=== PATIENT | male | born 1965 | race Caucasian/White ===

== ENCOUNTER 2025-01-01 20:30 | Observation (INO) ==
[2025-01-01 22:06] LABS: Hematocrit (blood only) 42.8 % (42.0-52.0); Hemoglobin 14.9 g/dl (14.0-18.0); Immature Granulocytes # (auto) 0.03 K/uL (0.01-0.20); Immature Granulocytes % (auto) 0.4 %; Mean Corpuscular Hemoglobin 31.6 pg (25.0-34.0); Mean Corpuscular Volume 90.9 fL (80.0-100.0); Platelet Count 208 K/uL (130-400); RDW Standard Deviation 39.9 fL (36.4-46.3); Red Blood Count 4.71 M/uL (4.70-6.10); White Blood Count 8.33 K/ul (4.8-10.8)
[2025-01-01 22:14] LABS: Alanine Aminotransferase 18.0 U/L (7-52); Albumin Globulin Ratio 1.6 (0.9-2); Albumin Level 4.0 gm/dl (3.4-5.0); Alkaline Phosphatase 66.0 U/L (34-104); Anion Gap 11.0 (3-11); Bilirubin,Total 0.3 mg/dl (0.2-1.0); Blood Urea Nitrogen 13.0 mg/dl (6-23); Calcium 9.0 mg/dl (8.6-10.3); Carbon Dioxide 24.0 mmol/L (21-32); Chloride 104.0 mmol/L (98-107); Creatinine Clr Calc Pharmacy 91.9 ml/min; Globulin 2.5 gm/dl (2.5-4.0); Glucose 105.0 mg/dl (70-99(Fasting)); Lipase 38.0 U/L (11-82); Potassium 3.4 mmol/L (3.5-5.1); Sodium 139.0 mmol/L (136-145); Total Protein 6.5 gm/dl (6.0-8.3)
[2025-01-01 22:23] LABS: INR 1.0 (0.9-1.1); Partial Thromboplastin Time 22 Seconds (21-31); Prothrombin Time 10.8 Seconds (9.0-12.0)
[2025-01-01] MEDS: DIPHTHER/TETAN/PERTUS Vaccine (Tdap, Adol/Adult) 0.5mL IM ONE (22:50)
--- NOTE | 2025-01-01 22:55 | CT Scan Report ---
Exam(s): CT C SPINE EXAM: CT Cervical Spine Without Intravenous Contrast CLINICAL HISTORY: Reason for exam: Trauma. TECHNIQUE: Axial computed tomography images of the cervical spine without intravenous contrast. Automated exposure control was utilized for the study. A dose lowering technique was utilized adhering to the principles of ALARA. COMPARISON: No relevant prior studies available. FINDINGS: Vertebrae: No acute fracture. There are mild hypertrophic degenerative changes. Discs/spinal canal/neural foramina: No acute findings. No spinal canal stenosis. Soft tissues: Unremarkable. IMPRESSION: Mild hypertrophic degenerative changes. If further evaluation is clinically necessary, consider correlation with MRI Electronically signed by: Ramos Hu MD 01/01/25 22:54 PM
[2025-01-01] MEDS: LIDOCAINE 1% LOCAL 20 ML VIAL INJ ONE (23:35)
--- NOTE | 2025-01-01 23:44 | Emergency Department Note ---
ED Visit Note I was asked by my attending, Dr. Childers to assist with the wound repair. The patient sustained a vertical 3.5 cm laceration to the forehead. The wound was anesthetized using 1% lidocaine, which they tolerated well. Using sterile procedure, the wound bed was prepped and cleansed with sterile saline and Betadine. No foreign body was retained in the wound. Wound edges were approximated using 8, 6-0 sutures which will need to be removed in 7-10 days. The patient tolerated the procedure well. Bacitracin was applied to the wound as well as bandage. Please refer to Dr. Spring's documentation for patient instruction, as well as further evaluation and treatment. .
--- NOTE | 2025-01-02 00:21 | XRay Report ---
Exam(s): XR CXR 1 VIEW EXAM: XR Chest, 1 View CLINICAL HISTORY: Reason for exam: Trauma. TECHNIQUE: Frontal view of the chest. COMPARISON: No relevant prior studies available. FINDINGS: Eventration of the left hemidiaphragm. Lungs: Mild to moderate peribronchial thickening of the central and lower lobe bronchi. No consolidation. Pleural space: Unremarkable. No pneumothorax. Heart: Unremarkable. No cardiomegaly. Mediastinum: Unremarkable. Normal mediastinal contour. Bones/joints: Status post right shoulder arthroplasty. No acute fracture. IMPRESSION: No evidence of acute thoracic injury. If there is continued clinical concern, a CT scan may be of benefit for further evaluation. Electronically signed by: Sachi Awan MD 01/02/25 00:20 AM
--- NOTE | 2025-01-02 00:28 | CT Scan Report ---
Exam(s): CT FACIAL Without Contrast EXAM: CT Head and Maxillofacial Without Intravenous Contrast CLINICAL HISTORY: Reason for exam: Trauma. TECHNIQUE: Axial computed tomography images of the head/brain and face without intravenous contrast. CTDI is 26.96 mGy and DLP is 1367.88 mGy-cm. Automated exposure control was utilized for the study. A dose lowering technique was utilized adhering to the principles of ALARA. COMPARISON: No relevant prior studies available. FINDINGS: Brain: Unremarkable. No hemorrhage. No significant white matter disease. No edema. Ventricles: Unremarkable. No ventriculomegaly. Bones/joints: Remote displaced bilateral fractures. Soft tissues: Mild soft tissue swelling around the nose. Prominent lingual tonsils. Sinuses: Unremarkable as visualized. No acute sinusitis. Mastoid air cells: Unremarkable as visualized. No mastoid effusion. Orbits: Unremarkable as visualized. IMPRESSION: Bilateral nasal bone fractures. Electronically signed by: Sachi Awan MD 01/02/25 00:26 AM
--- NOTE | 2025-01-02 01:05 | CT Scan Report ---
Exam(s): CT HEAD Without Contrast EXAM: CT Head Without Intravenous Contrast CLINICAL HISTORY: Reason for exam: Trauma. TECHNIQUE: Axial computed tomography images of the head/brain without intravenous contrast. CTDI is 26.96 mGy and DLP is 1367.88 mGy-cm. Automated exposure control was utilized for the study. A dose lowering technique was utilized adhering to the principles of ALARA. COMPARISON: No relevant prior studies available. FINDINGS: Brain: There is a remote injury of the right frontal lobe with encephalomalacia and gliosis. No hemorrhage. No significant white matter disease. No edema. Ventricles: Unremarkable. No ventriculomegaly. Bones/joints: Unremarkable. No acute fracture. Soft tissues: There is mild soft tissue swelling over the right forehead. Sinuses: Unremarkable as visualized. No acute sinusitis. Mastoid air cells: Unremarkable as visualized. No mastoid effusion. IMPRESSION: No evidence of acute intercranial pathology. Electronically signed by: Sachi Awan MD 01/02/25 01:04 AM
--- NOTE | 2025-01-02 01:18 | Emergency Department Note ---
Impression & Plan Syncope, Urticaria, Open fracture of nasal bones, Facial laceration, Elevated troponin Admit to the [facility] ED Provider Note NAME: EYAL COYLE Jr AGE: 59 SEX: Male INFORMANT: Patient ED PROVIDER(S): Andria Spring DO CHIEF COMPLAINT: Allergic reaction and syncope PLAN: Disposition: Admit to the [facility] MEDICAL DECISION MAKING: This is a 59-year-old male patient who has had 3 separate episodes of acute hives that lasted for approximately 1 hour over the past week. The third episode was this evening. The patient got into the shower to try to help with the itch and became extremely lightheaded and dizzy. As he was getting out of the shower, he had a syncopal event and fell to the ground striking his face suffering a large laceration to his forehead. CT scan of the brain and cervical spine were negative. Facial CT scan showed evidence of bilateral nasal bone fractures. The patient had what appeared to be a puncture wound over the nose which most likely represents the open nasal bone fracture. He was medicated with IV Ancef for this. He was also given a IM Adacel. Laboratory studies reveal elevated troponin levels but EKG remained unchanged. The patient had no chest discomfort. Patient denies any past medical history other than an intracranial hemorrhage earlier this year after suffering a fall out of bed after a night of drinking. [facility] care. The laceration on the face was repaired by GAVIN Jovel. Please see her procedure note dictation for details of the repair [facility] Nursing notes: reviewed and agree with them. Vital Signs: reviewed and remarkable for hypertension Additional History obtained from: Patient's family who is at the bedside Differential Diagnosis: Intracranial hemorrhage, skull fracture, facial bone fractures, C-spine injury Diagnostics, independently interpreted by me: ECG: normal sinus rhythm at a rate of [address] segment elevation or signs of ischemia. There is no ectopy seen Cardiac Monitoring: normal sinus rhythm at a rate of 75 Imaging studies: CT scan of the brain: As per Imbro CT scan of the facial bones: As per Imbro CT scan of the cervical spine: As per Imbro Chest x-ray: No acute abnormalities as per my independent interpretation HPI: 59 year old Male arrives for evaluation of facial trauma. The patient was having an acute allergic reaction at home with hives about his body when he got into the shower to see if that would help the itch. Patient became lightheaded and dizzy in the shower and as he was stepping out had a syncopal episode falling to the ground striking his face. He suffered a laceration to his forehead and trauma to his nose. EMS was called and they transported him here. Patient explains that this is the third allergic reaction he has had in 1 week where he developed hives about his body. PAST MEDICAL HISTORY: Previous intracranial hemorrhage from trauma in April of this year, SOCIAL HISTORY: Lives with his family but travels for work, does drink alcohol HOME MEDICATIONS: None ALLERGIES: None VITALS: See Below PHYSICAL EXAMINATION: Primary Survey Airway: Intact Breathing: Normal, breath sounds equal bilaterally Circulation: Skin warm, distal pulses 2+, capillary refill less than 2 seconds Disability Pupils: Equal and reactive to light, 2mm, brisk GCS: 15, E = 6 V=5 M= 4 Motor Function: Moves all extremities. Sensory: No deficits Secondary Survey GEN: Well developed and well-nourished HEAD: Normal cephalic with a 3.5 cm linear laceration to the right forehead. Obvious contusion, deformity and edema to the nose with a small puncture wound to the bridge of the nose. EYES: Pupils round reactive to light, conjunctiva clear, extraocular movements intact, no raccoons eyes ENT: No fluid in external acoustic canals, no hemotympanum, no sam's sign, nares patent, oropharynx clear NECK: No JVD, midline trachea, no cervical spine tenderness, C-spine was clinically cleared at 2110 HEART: Regular rate and rhythm LUNGS: Clear to auscultation bilaterally. CHEST: Chest wall non-tender, no bruising/deformity ABD: No Johnson-Mcgowan's or Galen's sign, soft, non-tender, no rebound or guarding, PELVIS: Stable to rock BACK: No step offs or deformities, T-L spine non tender EXT: 2+ global pulses, moving all extremities well, +5/5 muscle strength globally NEURO: CNII-XII grossly intact, no sensory deficits Skin: Urticaria noted over the right flank and chest wall Emergency Department treatment: library monitor, IM Adacel, IV Ancef Emergency Department course: Patient was evaluated in room B-7. A complete history and physical was performed. Full trauma evaluation was completed. Portable chest x-ray was performed. Order was placed for continuous cardiac monitoring. Patient was in a normal sinus rhythm at a rate of 75. Twelve-lead EKG was obtained. Laboratory studies were drawn as above. IM Adacel was given. Patient went for CT scan of the brain, cervical spine and facial bones. IV Ancef was given. The wound on the face was repaired by GAVIN Jovel. Repeat troponin was obtained. The case was discussed with the [facility] Hospitalist and the patient will be evaluated for further inpatient care. Past Med/Surg History Problem List (Updated 01/02/25 @ 12:12 by Luigi Cadet MD) Fracture Elevated troponin (Acute) Facial laceration (Acute) Open fracture of nasal bones (Acute) Urticaria (Acute) Syncope (Acute) Medical History (Updated 01/02/25 @ 12:12 by Luigi Cadet MD) No known health problems Surgical History History of wisdom tooth extraction Family History Father Stomach cancer Social History Smoking Status: Never smoker Tobacco Type: Smokeless Tobacco (Dip or Chew) Second Hand Exposure: Yes; Do You Dip or Chew Tobacco: No (hisotry of); Hx Alcohol Use: Yes Alcohol type: beer Hx Substance Use: No Preferred Language: Turkish Communication Ability: Effective Radiation Officer Required: No Beliefs That Will Affect Care: None Current Living Situation: Spouse and Family Current Living Situation Comment: and kids Other Information That Helps Us Care for You: No Feels Safe at Home: Yes Safety Concerns: Feels Safe At This Time Assistive Devices: None Allergies Allergies Allergy/AdvReac Type Severity Reaction Status Date / Time No Known Allergies Allergy Verified 01/01/25 23:47 Home Meds Home Medications Medication Instructions Recorded Confirmed No Known Home Medications 01/01/25 01/01/25 Results & Data (ED) Vital Signs Vital Signs - 24 hr 01/01/25 20:38 01/01/25 20:53 01/01/25 20:53 Temperature 36.9 C Temperature Source Oral Pulse Rate 91 H 92 H Pulse Rate [Apical] Respiratory Rate 18 Respiratory Effort / Characteristics Non-Labored Spontaneous Respiratory Depth Respiratory Pattern Blood Pressure 143/88 H Blood Pressure [Right Arm] Blood Pressure Mean 106 Blood Pressure Mean [Right Arm] Blood Pressure Position [Right Arm] Pulse Oximetry 94 94 Oxygen Delivery Method Room Air Room Air Sepsis Recent Fever Within 48 Hours No Sepsis New/Unexplained Change in Mental Status No Sepsis Action Taken by Nursing No Action Required 01/01/25 20:53 01/01/25 22:15 01/01/25 22:22 Temperature Temperature Source Pulse Rate 77 Pulse Rate [Apical] 92 H 77 Respiratory Rate 18 16 16 Respiratory Effort / Characteristics Non-Labored Spontaneous Respiratory Depth Respiratory Pattern Blood Pressure Blood Pressure [Right Arm] 143/88 H 143/88 H Blood Pressure Mean Blood Pressure Mean [Right Arm] 106 106 Blood Pressure Position [Right Arm] Pulse Oximetry 94 97 94 Oxygen Delivery Method Room Air Room Air Room Air Sepsis Recent Fever Within 48 Hours Sepsis New/Unexplained Change in Mental Status Sepsis Action Taken by Nursing 01/02/25 00:00 01/02/25 00:33 Temperature Temperature Source Pulse Rate 75 Pulse Rate [Apical] 68 Respiratory Rate 15 Respiratory Effort / Characteristics Non-Labored Spontaneous Respiratory Depth Normal Respiratory Pattern Regular Blood Pressure Blood Pressure [Right Arm] 122/84 Blood Pressure Mean Blood Pressure Mean [Right Arm] 96 Blood Pressure Position [Right Arm] Semi-fowlers Pulse Oximetry 97 Oxygen Delivery Method Room Air Sepsis Recent Fever Within 48 Hours Sepsis New/Unexplained Change in Mental Status Sepsis Action Taken by Nursing Laboratory Data 01/02/25 03:58 01/02/25 03:58 Lab Results 01/01/25 01/01/25 01/01/25 Range/Units 20:45 22:46 23:28 WBC 8.33 (4.8-10.8) K/ul RBC 4.71 (4.70-6.10) M/uL Hgb 14.9 (14.0-18.0) g/dl Hct 42.8 (42.0-52.0) % MCV 90.9 (80.0-100.0) fL MCH 31.6 (25.0-34.0) pg MCHC 34.8 (32.0-36.0) g/dL RDW Std Deviation 39.9 (36.4-46.3) fL RDW Coeff of Yashira 12.1 (11.5-14.5) % Plt Count 208 (130-400) K/uL MPV 10.2 (9.4-12.4) fL Immature Gran % (Auto) 0.4 % Neut % (Auto) 70.2 % Lymph % (Auto) 21.1 % Blair % (Auto) 6.2 % Eos % (Auto) 1.6 % Baso % (Auto) 0.5 % Neut # (Auto) 5.85 (1.40-6.50) K/uL Lymph # (Auto) 1.76 (1.20-3.40) K/uL Blair # (Auto) 0.52 (0.11-0.59) K/uL Eos # (Auto) 0.13 (0.00-0.50) K/uL Baso # (Auto) 0.04 (0.00-0.20) K/uL Immature Gran # (Auto) 0.03 (0.01-0.20) K/uL PT 10.8 (9.0-12.0) Seconds INR 1.0 (0.9-1.1) APTT 22 (21-31) Seconds PTT Ratio 0.8 Sodium 139 (136-145) mmol/L Potassium 3.4 L (3.5-5.1) mmol/L Chloride 104 (98-107) mmol/L Carbon Dioxide 24 (21-32) mmol/L Anion Gap 11 (3-11) BUN 13 (6-23) mg/dl Creatinine 0.95 (0.6-1.4) mg/dl Est Cr Clr Drug Dosing 91.9 ml/min eGFR 92.20 BUN/Creatinine Ratio 13.7 (10-20) Glucose 105 H (70-99(Fasting)) mg/dl Calcium 9.0 (8.6-10.3) mg/dl Magnesium 2.0 (1.7-2.4) mg/dl Total Bilirubin 0.3 (0.2-1.0) mg/dl AST 29 (13-39) U/L ALT 18 (7-52) U/L Alkaline Phosphatase 66 (34-104) U/L Troponin I High Sens 30.5 H 132.9 H* D (0-20) pg/ml Total Protein 6.5 (6.0-8.3) gm/dl Albumin 4.0 (3.4-5.0) gm/dl Globulin 2.5 (2.5-4.0) gm/dl Albumin/Globulin Ratio 1.6 (0.9-2) Lipase 38 (11-82) U/L TSH 2.980 (0.300-4.500) uIu/ml Ethyl Alcohol mg/dL < 10.0 (<10.0) mg/dl Lyme Disease Screen (Negative) 01/02/25 Range/Units 01:06 WBC (4.8-10.8) K/ul RBC (4.70-6.10) M/uL Hgb (14.0-18.0) g/dl Hct (42.0-52.0) % MCV (80.0-100.0) fL MCH (25.0-34.0) pg MCHC (32.0-36.0) g/dL RDW Std Deviation (36.4-46.3) fL RDW Coeff of Yashira (11.5-14.5) % Plt Count (130-400) K/uL MPV (9.4-12.4) fL Immature Gran % (Auto) % Neut % (Auto) % Lymph % (Auto) % Blair % (Auto) % Eos % (Auto) % Baso % (Auto) % Neut # (Auto) (1.40-6.50) K/uL Lymph # (Auto) (1.20-3.40) K/uL Blair # (Auto) (0.11-0.59) K/uL Eos # (Auto) (0.00-0.50) K/uL Baso # (Auto) (0.00-0.20) K/uL Immature Gran # (Auto) (0.01-0.20) K/uL PT (9.0-12.0) Seconds INR (0.9-1.1) APTT (21-31) Seconds PTT Ratio Sodium (136-145) mmol/L Potassium (3.5-5.1) mmol/L Chloride (98-107) mmol/L Carbon Dioxide (21-32) mmol/L Anion Gap (3-11) BUN (6-23) mg/dl Creatinine (0.6-1.4) mg/dl Est Cr Clr Drug Dosing ml/min eGFR BUN/Creatinine Ratio (10-20) Glucose (70-99(Fasting)) mg/dl Calcium (8.6-10.3) mg/dl Magnesium (1.7-2.4) mg/dl Total Bilirubin (0.2-1.0) mg/dl AST (13-39) U/L ALT (7-52) U/L Alkaline Phosphatase (34-104) U/L Troponin I High Sens (0-20) pg/ml Total Protein (6.0-8.3) gm/dl Albumin (3.4-5.0) gm/dl Globulin (2.5-4.0) gm/dl Albumin/Globulin Ratio (0.9-2) Lipase (11-82) U/L TSH (0.300-4.500) uIu/ml Ethyl Alcohol mg/dL (<10.0) mg/dl Lyme Disease Screen Negative (Negative) Administered Medications Cyproheptadine HCl (Cyproheptadine Hcl 4 Mg Tab) 4 mg PO Q8H [facility] Stop: 02/01/25 08:14 Last Admin: 01/02/25 16:04 Dose: 4 mg Documented By: Admin: 01/02/25 09:03 Dose: 4 mg Documented By: NICOLE Methylprednisolone 40 mg/ (Syringe) 0.64 mls @ 1.5 mls/min IV Q8H [facility] Stop: 02/01/25 08:29 Last Admin: 01/02/25 16:04 Dose: 1.5 mls/min Documented By: Admin: 01/02/25 09:03 Dose: 1.5 mls/min Documented By: NICOLE Discontinued Medications Diphtheria/Pertussis/Tetanus Vacc (Diphther/Tetan/Pertus Vaccine (Tdap, Adol/Adult) 0.5ml) 0.5 ml IM .ONCE ONE Stop: 01/01/25 21:51 Last Admin: 01/01/25 22:50 Dose: 0.5 ml Documented By: JOURDAN Cefazolin Sodium (Ancef 1000mg) 1,000 mg in 7.5 mls @ 2.5 mls/min IV NOW STA Stop: 01/02/25 00:34 Last Admin: 01/02/25 00:58 Dose: 2.5 mls/min Documented By: mls Lactated Ringer's (Lr) 1,000 mls @ 80 mls/hr IV .[id number] ALEXI Stop: 01/02/25 13:44 Last Infusion: 01/02/25 14:42 Dose: Infused Documented By: Admin: 01/02/25 01:51 Dose: 80 mls/hr Documented By: SANDRA Lidocaine HCl (Lidocaine 1% Local 20 Ml Vial) 10 ml INJ NOW ONE Stop: 01/01/25 21:53 Last Admin: 01/01/25 23:35 Dose: 10 ml Documented By: [id number] Imaging Data Radiologist's Impression: Chest X-Ray 01/01/25 21:50 Exam(s): XR CXR 1 VIEW EXAM: XR Chest, 1 View CLINICAL HISTORY: Reason for exam: Trauma. TECHNIQUE: Frontal view of the chest. COMPARISON: No relevant prior studies available. FINDINGS: Eventration of the left hemidiaphragm. Lungs: Mild to moderate peribronchial thickening of the central and lower lobe bronchi. No consolidation. Pleural space: Unremarkable. No pneumothorax. Heart: Unremarkable. No cardiomegaly. Mediastinum: Unremarkable. Normal mediastinal contour. Bones/joints: Status post right shoulder arthroplasty. No acute fracture. IMPRESSION: No evidence of acute thoracic injury. If there is continued clinical concern, a CT scan may be of benefit for further evaluation. Electronically signed by: Sachi Awan MD 01/02/25 00:[address] 01/01/25 21:51 Exam(s): CT C SPINE EXAM: CT Cervical Spine Without Intravenous Contrast CLINICAL HISTORY: Reason for exam: Trauma. TECHNIQUE: Axial computed tomography images of the cervical spine without intravenous contrast. Automated exposure control was utilized for the study. A dose lowering technique was utilized adhering to the principles of ALARA. COMPARISON: No relevant prior studies available. FINDINGS: Vertebrae: No acute fracture. There are mild hypertrophic degenerative changes. Discs/spinal canal/neural foramina: No acute findings. No spinal canal stenosis. Soft tissues: Unremarkable. IMPRESSION: Mild hypertrophic degenerative changes. If further evaluation is clinically necessary, consider correlation with MRI Electronically signed by: Ramos Hu MD 01/01/25 22:[address] 01/01/25 21:51 Exam(s): CT FACIAL Without Contrast EXAM: CT Head and Maxillofacial Without Intravenous Contrast CLINICAL HISTORY: Reason for exam: Trauma. TECHNIQUE: Axial computed tomography images of the head/brain and face without intravenous contrast. CTDI is 26.96 mGy and DLP is 1367.88 mGy-cm. Automated exposure control was utilized for the study. A dose lowering technique was utilized adhering to the principles of ALARA. COMPARISON: No relevant prior studies available. FINDINGS: Brain: Unremarkable. No hemorrhage. No significant white matter disease. No edema. Ventricles: Unremarkable. No ventriculomegaly. Bones/joints: Remote displaced bilateral fractures. Soft tissues: Mild soft tissue swelling around the nose. Prominent lingual tonsils. Sinuses: Unremarkable as visualized. No acute sinusitis. Mastoid air cells: Unremarkable as visualized. No mastoid effusion. Orbits: Unremarkable as visualized. IMPRESSION: Bilateral nasal bone fractures. Electronically signed by: Sachi Awan MD 01/02/25 00:[address] 01/01/25 21:51 Exam(s): CT HEAD Without Contrast EXAM: CT Head Without Intravenous Contrast CLINICAL HISTORY: Reason for exam: Trauma. TECHNIQUE: Axial computed tomography images of the head/brain without intravenous contrast. CTDI is 26.96 mGy and DLP is 1367.88 mGy-cm. Automated exposure control was utilized for the study. A dose lowering technique was utilized adhering to the principles of ALARA. COMPARISON: No relevant prior studies available. FINDINGS: Brain: There is a remote injury of the right frontal lobe with encephalomalacia and gliosis. No hemorrhage. No significant white matter disease. No edema. Ventricles: Unremarkable. No ventriculomegaly. Bones/joints: Unremarkable. No acute fracture. Soft tissues: There is mild soft tissue swelling over the right forehead. Sinuses: Unremarkable as visualized. No acute sinusitis. Mastoid air cells: Unremarkable as visualized. No mastoid effusion. IMPRESSION: No evidence of acute intercranial pathology. Electronically signed by: Sachi Awan MD 01/02/25 01:04 AM Discharge Plan Visit Data Chief Complaint: Allergic Reaction Stated Complaint: HIVES, SYNCOPE, +LOC ED Provider: Andria Spring Discharge Problem: Syncope, Urticaria, Open fracture of nasal bones, Facial laceration, Elevated troponin Patient Disposition: Admitted As Inpatient Condition: Serious Discharge Instructions Interventions: ED Discharge Assessment Last Done: 01/02/25 02:16
--- NOTE | 2025-01-02 01:26 | History & Physical Report ---
"Date of Service January 02, 2025 Assessment & Plan (1) Elevated troponin: (2) Open fracture of nasal bones: (3) Urticaria: (4) Syncope: Plan 59 y/o male with no significant PMH here due a syncope after developing hives. Patient states that had been having hives types episodes in the afternoon for the past couple of days. Unsure what is causing them, no new home products, no new OTC, no new detergent, soup or fragrances. He states that usually taking a shower and taking a aspirin had been helping with symptoms. Today he took the shower and felt very bad, when he just had an episode of LOC and felt hitting his face in the shower. Patient had a 3.5cm laceration on his forehead that was sutured. CT head didn't showed any acute pathology. Facial CT: bilateral nasal fractures. Cervical CT: mild degenerative changes. Initial troponin mildly elevated 30, repeat 132.9. Patient without any chest pain, SOB, palpitations. Patient without any chest pain, SOB, palpitations. Denied any abdominal pain, nausea, vomiting or diarrhea. No wheezing.Patient will be admitted for observation and syncope workup and ACS rule out #Syncope - Patient with acute syncope after developing hives. No prodromal symptoms. No know heart disease - suspected secondary to allergic reaction, systemic vasodilation? Mastocytosis? - Will admit patient to med /telemetry - Troponin elevated on admission 30 -> 132. No CP. Repeat EKG normal sinus,no St depression or elevations - Chemistry remarkable. Potassium: 3.5.. Hgb 14 - UA negative - Lyme disease pending - Echocardiogram added to complete syncope workup - Serial troponin q6hrs - Orthostatic BP - LR 125 ml/hr 1L - CMP, mag in AM #Hives/ Urticaria | Severe allergic reaction - Unknown trigger. a week of generalized hives in the afternoon, mostly when he's outside - Related syncope but no respiratory symptoms, wheezing, SOB - Benadryl in EM improved symptoms - Will order the RAST testing to try to identify trigger - Benadryl prn #Bilateral nasal bone fractures/ Facial laceration - No respiratory distress, no airway compromised on admission - Pain control - Received Ancef x1 and Tdap booster in ED - consider outpatient ENT evaluation DVT prophylaxis: low risk, ambulation Dispo: Med telemetry History of Present Illness Primary Care Provider: Toro Lofton MD 59 y/o male with no significant PMH here due a syncope after developing hives. Patient states that had been having hives types episodes in the afternoon for the past couple of days. Unsure what is causing them, no new home products, no new OTC, no new detergent, soup or fragrances. He states that usually taking a shower and taking a aspirin had been helping with symptoms. Today he took the shower and felt very bad, when he just had an episode of LOC and felt hitting his face in the shower. Patient had a 3.5cm laceration on his forehead that was sutured. CT head didn't showed any acute pathology. Facial CT: bilateral nasal fractures. Cervical CT: mild degenerative changes. Initial troponin mildly elevated 30, repeat 132.9. Patient without any chest pain, SOB, palpitations. Denied any abdominal pain, nausea, vomiting or diarrhea. No wheezing. Allergies Allergy/AdvReac Type Severity Reaction Status Date / Time No Known Allergies Allergy Verified 01/01/25 23:47 Home Medications Medication Instructions Recorded Confirmed Type No Known Home Medications 01/01/25 01/01/25 History Past Med/Surg History Problem List (Updated 01/02/25 @ 12:12 by Luigi Cadet MD) Fracture Elevated troponin (Acute) Facial laceration (Acute) Open fracture of nasal bones (Acute) Urticaria (Acute) Syncope (Acute) Medical History (Updated 01/02/25 @ 12:12 by Luigi Cadet MD) No known health problems Surgical History History of wisdom tooth extraction Family History Father Stomach cancer Social History Smoking Status: Never smoker Tobacco Type: Smokeless Tobacco (Dip or Chew) Second Hand Exposure: Yes; Do You Dip or Chew Tobacco: No (hisotry of); Hx Alcohol Use: Yes Alcohol type: beer Hx Substance Use: No Preferred Language: Mont[place]atian Communication Ability: Effective Deputy County Clerk Required: No Beliefs That Will Affect Care: None Current Living Situation: Spouse and Family Current Living Situation Comment: and kids Other Information That Helps Us Care for You: No Feels Safe at Home: Yes Safety Concerns: Feels Safe At This Time Assistive Devices: None Physical Exam Constitutional: well developed, well nourished and cooperative; no acute distress ENMT: external ear and nose normal, oropharynx normal Neck: trachea midline, no thyromegaly Respiratory: normal respiratory effort, lungs clear to auscultation Cardiovascular: RRR, no murmur, no edema Gastrointestinal (Abdomen): normal bowel sounds, soft, nontender, no hepatosplenomegaly Skin: Trauma: + laceration (Forehead) and + contusion Neurologic: PERRL, EOMI, accommodation nl, no face palsy, no dysarthria Psychiatric: A+Ox3, euthymic affect Results & Data Results & Data Vital Signs (Past 12 Hours) Vital Signs Temp Pulse Pulse Resp BP BP Pulse Ox 01/02/25 00:33 75 01/02/25 00:00 68 15 122/84 97 01/01/25 22:22 77 16 143/88 H 94 01/01/25 22:15 77 16 97 01/01/25 20:53 92 H 18 143/88 H 94 01/01/25 20:53 94 01/01/25 20:53 36.9 C 92 H 18 143/88 H 94 01/01/25 20:38 91 H O2 Del Method 01/02/25 00:33 01/02/25 00:00 Room Air 01/01/25 22:22 Room Air 01/01/25 22:15 Room Air 01/01/25 20:53 Room Air 01/01/25 20:53 Room Air 01/01/25 20:53 Room Air 01/01/25 20:38 Code Status & VTE Plan VTE Prophylaxis Plan VTE Prophylaxis will be ordered: Yes Supervising Physician Co-Signing Physician Notes Attending addendum: I have physically seen this patient, have supervised the medical residents activities, and agree with the H&P unless as otherwise noted. Assessment and Plan: Patient is a 59-year-old male with past medical history including syncope after developing hives from unknown reaction. Reports at least 3 episodes of the previous couple days again, from unknown source He reports that this seemed to occur and she is going outside. Showering and then taking aspirin seem to help symptoms Earlier today he had another episode of loss of consciousness, this time he fell forward, hitting his face on the shower, and required suturing in the emergency department for 3.5 cm laceration on his forehead. CT head did not show any internal bleeding. Facial CT showed bilateral nasal fractures. Cervical CT showed mild degenerative changes. Initial troponin 30, follow-up 3.32.9 Patient will be admitted to monitored Syncopal episode- Patient had placed 3 episodes over the past few days of syncope after developing hives Unknown etiology at this time The patient will be admitted to telemetry for serial cardiac enzymes, serial EKG's, cardiac rhythm monitoring and a 2-D echocardiogram with Dopplers. Follow-up troponins ordered and pending Orthostatic vital signs Place on LR 125 mL/h x 1 L Hives/urticaria/severe allergic reaction- Multiple episodes of the last few days Order RAST test for zone 3 allergens, and food allergen panel Bilateral nasal bone fractures/ facial laceration- Received Ancef in the ED and Tdap booster Follow-up with ENT in the outpatient setting Resident Activity Tracking Resident Involvement: Resident Care Provided Care Provided: Adult [facility]"
[2025-01-02 01:31] LABS: Magnesium 2.0 mg/dl (1.7-2.4)
[2025-01-02 01:36] LABS: Appearance Urine Clear (Clear); Glucose Urine UA Negative (Negative)
[2025-01-02] MEDS: LACTATED RINGER'S 1,000 ML IV SCH (01:51)
[2025-01-02] MEDS ORDERED: ONDANSETRON INJ 2 MG/ML 2 ML VIAL IV PRN (02:44)
[2025-01-02] MEDS ORDERED: ACETAMINOPHEN 325 MG TAB PO PRN (02:44)
[2025-01-02 03:35] LABS: Thyroid Stimulating Hormone 2.98 uIu/ml (0.300-4.500)
[2025-01-02 04:20] LABS: Hematocrit (blood only) 41.2 % (42.0-52.0); Hemoglobin 14.3 g/dl (14.0-18.0); Immature Granulocytes # (auto) 0.02 K/uL (0.01-0.20); Immature Granulocytes % (auto) 0.3 %; Mean Corpuscular Hemoglobin 31.6 pg (25.0-34.0); Mean Corpuscular Volume 90.9 fL (80.0-100.0); Platelet Count 193 K/uL (130-400); RDW Standard Deviation 40.6 fL (36.4-46.3); Red Blood Count 4.53 M/uL (4.70-6.10); White Blood Count 8.00 K/ul (4.8-10.8)
[2025-01-02 04:35] LABS: Anion Gap 4.0 (3-11); Blood Urea Nitrogen 12.0 mg/dl (6-23); Calcium 8.8 mg/dl (8.6-10.3); Carbon Dioxide 29.0 mmol/L (21-32); Chloride 104.0 mmol/L (98-107); Creatinine Clr Calc Pharmacy 86.4 ml/min; Glucose 114.0 mg/dl (70-99(Fasting)); Potassium 3.8 mmol/L (3.5-5.1); Sodium 137.0 mmol/L (136-145)
[2025-01-02] MEDS ORDERED: methylPREDNISolone 10 mg/mL (For Ped Dose < 7mg) IV SCH (08:15)
[2025-01-02 08:24] LABS: Amphetamines+Metham, Urine Neg (Neg); MDMA (Ecstacy), Urine Neg (Neg); Marijuana, Urine Neg (Neg)
[2025-01-02] MEDS: CYPROHEPTADINE HCL 4 MG TAB PO SCH (09:03)
--- NOTE | 2025-01-02 12:14 | Hospitalist Progress Note ---
Date of Service January 02, 2025 Assessment & Plan (1) Syncope: Plan: Probably related to transient hypotension from the underlying cause of the urticaria which has not been determined. No acute EKG changes. No evidence of acute coronary syndrome. Currently hemodynamically stable (2) Urticaria: Plan: No recurrence of urticaria since admission. He is now on cyproheptadine and parenteral steroid therapy which will continue for short time at discharge (3) Facial laceration: Plan: Forehead laceration suffered when he had a syncopal episode and fell has been sutured in the ED with hemostasis achieved. No signs of infection. Sutures will be removed in 1 week. (4) Elevated troponin: Plan: Mild. No chest pain. No acute EKG changes. Telemetry. Serial troponin levels (5) Fracture: Plan: Nondisplaced nasal fracture suffered when he had a syncopal episode and fell. No intervention necessary at this time Plan Hopeful discharge to home tomorrow, January 03, on cyproheptadine and a tapering dose of prednisone. Admission and Anticipated Discharge Date Admission Date: January 02, 2025 Subjective Alert and oriented. No complaints. Scheduled dosing of cyproheptadine has been started along with parenteral steroid therapy. Cardiac echo report is pending. Admission head CT scan was negative. No recurrent hives since admission. Hopefully he can go home tomorrow, January 03 Review of Systems 2 Review of Systems: Constitutionalno fever or chills ENTno blurred vision, no double vision, no epistaxis, no sore throat Respiratoryno cough, no wheezing, no shortness of breath Cardiacno palpitations, no chest pain, no syncope Yuri nausea, vomiting, diarrhea, melena, hematochezia GUno urinary retention, no urinary incontinence, no dysuria, no hematuria Musculoskeletalno joint pain, no muscle tenderness Skinno bruising, no rashes, no pruritus. Forehead laceration which he suffered when he fell with his syncopal episode has been sutured in the ED on admission and is bandaged Neurono isolated weakness, no paresthesia, no weakness Psychno depression, no anxiety Physical Exam 2 Physical Exam: General-alert and oriented x3, no fever, no chills HEENT-head normocephalic, pupils equal and reactive to light, extraocular muscles intact. Forehead laceration has been sutured in the ED on admission and hemostasis achieved. No signs of infection. Neck-no lymphadenopathy or thyromegaly, trachea midline Chest-clear to auscultation. No rales, wheezing or rhonchi Cardiac-regular rate and rhythm, normal S1 and S2 Abdomen-normal bowel sounds, no hepatosplenomegaly Extremities-no cyanosis, clubbing, or edema Neuro-cranial nerves II through XII intact, motor and sensory function within normal limits, strength symmetrical, no focal deficits Psych-normal affect, normal mood Results & Data Results & Data Vital Signs (Past 12 Hours) Vital Signs Temp Pulse Pulse Pulse Resp BP Pulse Ox 01/02/25 11:20 36.8 C 64 18 150/95 H 93 01/02/25 07:30 01/02/25 07:23 36.5 C 65 18 132/84 94 01/02/25 07:00 84 01/02/25 02:47 37.6 C H 67 18 147/97 H 99 01/02/25 02:30 79 01/02/25 02:00 71 14 130/94 96 01/02/25 00:33 75 O2 Del Method 01/02/25 11:20 Room Air 01/02/25 07:30 Room Air 01/02/25 07:23 Room Air 01/02/25 07:00 01/02/25 02:47 Room Air 01/02/25 02:30 01/02/25 02:00 Room Air 01/02/25 00:33 Laboratory Results 01/02/25 03:58 01/02/25 03:58 PG Care Time/CCT Total # of Minutes Spent Total Time Spent with Patient: Total time spent is greater than 50% in coordination of care (as documented) at patient's floor/unit and/or counseling patient: Coding Level of Care Code 84055 SUB INP/OBS CARE 3/50MIN Diagnoses Syncope R55 Urticaria L50.9 Facial laceration S01.81XA Elevated troponin R79.89 Fracture T14.8XXA
--- NOTE | 2025-01-02 13:49 | XCELERA ---
[id number]
--- NOTE | 2025-01-02 15:38 | Electrocardiogram Report ---
Test Reason : Blood Pressure : */* mmHG Vent. Rate : 89 BPM Atrial Rate : 89 BPM P-R Int : 196 ms QRS Dur : 96 ms QT Int : 354 ms P-R-T Axes : 44 1 48 degrees QTcB Int : 430 ms Normal sinus rhythm Normal ECG When compared with ECG of 30-May-2024 10:52, T wave amplitude has decreased in Anterior leads Confirmed by Elio Gray ([id number]) on 01/02/2025 3:38:12 PM Referred By: REFERRED SELF Confirmed By: Elio Gray
--- NOTE | 2025-01-02 15:43 | Electrocardiogram Report ---
Test Reason : Blood Pressure : */* mmHG Vent. Rate : 66 BPM Atrial Rate : 66 BPM P-R Int : 206 ms QRS Dur : 98 ms QT Int : 388 ms P-R-T Axes : 26 4 44 degrees QTcB Int : 406 ms Normal sinus rhythm Normal ECG When compared with ECG of 01-Jan-2025 20:39, (unconfirmed) No significant change was found Confirmed by Elio Gray ([id number]) on 01/02/2025 3:43:18 PM Referred By: REFERRED SELF Confirmed By: Elio Gray
[2025-01-02 23:06] VITALS: O2SAT 93
--- NOTE | 2025-01-03 06:28 | Billing Data ---
Date of Service January 03, 2025 Coding Level of Care Code 65000 INT INP/OBS CARE
[2025-01-03 06:42] LABS: Hematocrit (blood only) 44.9 % (42.0-52.0); Hemoglobin 14.8 g/dl (14.0-18.0); Mean Corpuscular Hemoglobin 30.5 pg (25.0-34.0); Mean Corpuscular Volume 92.4 fL (80.0-100.0); Platelet Count 205 K/uL (130-400); RDW Standard Deviation 41.5 fL (36.4-46.3); Red Blood Count 4.86 M/uL (4.70-6.10); White Blood Count 12.18 K/ul (4.8-10.8)
[2025-01-03 07:12] LABS: Immature Granulocytes # (auto) 0.06 K/uL (0.01-0.20); Immature Granulocytes % (auto) 0.5 %
[2025-01-03 07:15] LABS: Anion Gap 7.0 (3-11); Blood Urea Nitrogen 16.0 mg/dl (6-23); Calcium 9.3 mg/dl (8.6-10.3); Carbon Dioxide 25.0 mmol/L (21-32); Chloride 106.0 mmol/L (98-107); Creatinine Clr Calc Pharmacy 101.5 ml/min; Glucose 184.0 mg/dl (70-99(Fasting)); Potassium 4.4 mmol/L (3.5-5.1); Sodium 138.0 mmol/L (136-145)
--- NOTE | 2025-01-03 09:53 | Discharge Summary ---
Discharge Summary Date of Service January 03, 2025 Principal Dx & Hospital Course #1 = Principal Diagnosis (1) Syncope: Probably related to transient hypotension from the urticaria. The underlying cause of the urticaria has not been determined. No acute EKG changes. No evidence of acute coronary syndrome. Currently hemodynamically stable (2) Urticaria: No recurrence of urticaria since admission. He is now on cyproheptadine and was also treated with parenteral steroid therapy while hospitalized. He will be discharged on cyproheptadine and a oral prednisone tapering dose. (3) Facial laceration: Forehead laceration suffered when he had a syncopal episode and fell has been sutured in the ED with hemostasis achieved. No signs of infection. Sutures will be removed in 1 week by PCP. (4) Elevated troponin: Mild. No chest pain. No acute EKG changes. Telemetry. Serial troponin levels (5) Fracture: Nondisplaced nasal fracture suffered when he had a syncopal episode and fell. No intervention necessary at this time Plan Home today, January 03, on cyproheptadine and a tapering dose of prednisone. Admission HPI Per Admitting Provider 59 y/o male with no significant PMH here due a syncope after developing hives. Patient states that had been having hives types episodes in the afternoon for the past couple of days. Unsure what is causing them, no new home products, no new OTC, no new detergent, soup or fragrances. He states that usually taking a shower and taking a aspirin had been helping with symptoms. Today he took the shower and felt very bad, when he just had an episode of LOC and felt hitting his face in the shower. Patient had a 3.5cm laceration on his forehead that was sutured. CT head didn't showed any acute pathology. Facial CT: bilateral nasal fractures. Cervical CT: mild degenerative changes. Initial troponin mildly elevated 30, repeat 132.9. Patient without any chest pain, SOB, palpitations. Denied any abdominal pain, nausea, vomiting or diarrhea. No wheezing. Discharge Exam General-alert and oriented x3, no fever, no chills HEENT-head normocephalic, pupils equal and reactive to light, extraocular muscles intact. Forehead laceration has been sutured in the ED on admission and hemostasis achieved. No signs of infection. Neck-no lymphadenopathy or thyromegaly, trachea midline Chest-clear to auscultation. No rales, wheezing or rhonchi Cardiac-regular rate and rhythm, normal S1 and S2 Abdomen-normal bowel sounds, no hepatosplenomegaly Extremities-no cyanosis, clubbing, or edema Neuro-cranial nerves II through XII intact, motor and sensory function within normal limits, strength symmetrical, no focal deficits Psych-normal affect, normal mood Discharge Plan Discharge Items Patient Disposition: Home - Self-Care Reason For Visit: ALLERGIC REACTION, ELEVATED TROPONINS Discharge Diagnosis: Syncope with fall, forehead laceration, nasal bone fracture, urticaria, elevated troponin without acute coronary syndrome Condition on Discharge: Good Activity: Resume your previous activity Non-emergency contact: Primary Care Provider Call non-emergency contact if: your symptoms worsen Follow-up/Referrals: Toro Lofton MD [Primary Care Provider] - Diet: Regular Addtl Attending Provider Instructions: Take Periactin (cyproheptadine ) 4 mg twice daily for 1 week. Take prednisone in a tapering dose fashion as directed. Follow-up with primary care provider within 1 week or soon as possible for suture removal from the forehead laceration Pending Studies at Discharge: No Stand-Alone Forms: [place], Smoking Cessation Medications and DC Order Prescriptions: New cyproheptadine 4 mg tablet 4 mg PO BID Qty: 14 0RF prednisone 10 mg tablet See Rx Instructions .ROUTE .COMPLEX Qty: 12 0RF Rx Instructions: 10 mg orally 3 times a day for 2 days, then 10 mg twice a day for 2 days, then 10 mg once a day for 2 days, then stop Discharge Orders: Discharge Order (Routine); Ordered 01/03/25 Ordered By: Luigi Cdaet Admission Data Admit Date/Time: 01/02/25 01:18 Attending Provider: Luigi Cadet Admit Provider: Soraya Parkinson Primary Care Provider: Toro Lofton Other Providers: Kenny Shrestha Hospital Stay Data Consultations 01/02/25 01:11 ED Decision to Admit Stat Diagnostic Imagining Performed 01/01/25 21:51 CT cervical spine wo con Stat CT facial bones wo con Stat CT head/brain wo con Stat Pending Results Patient Have Any Pending Studies at Discharge: No Discharge Instructions Given to Patient (Per Discharging Provider) Take Periactin (cyproheptadine ) 4 mg twice daily for 1 week. Take prednisone in a tapering dose fashion as directed. Follow-up with primary care provider within 1 week or soon as possible for suture removal from the forehead laceration Total Time Total Time Spent Total Time Spent (In Minutes): 45 minutes Coding Level of Care Code 68775 INP/OBS DISCH >30 MIN Diagnoses Syncope R55 Urticaria L50.9 Facial laceration S01.81XA Elevated troponin R79.89 Fracture T14.8XXA
[2025-01-03 10:39] VITALS: BP 145/78; PULSE 81; RESP 16; TEMP 98.1
[2025-01-05 02:18] LABS: Almond Allergen IgE 0.11 kU/L; Brazil Nut Class 0; Cockroach IgE Ab 0.34 kU/L; Cottonwood Class 1; Hazelnut (f17)IgE <0.10 kU/L; Macadamia Nut (rf345) IgE 0.37 kU/L; Macadamia Nut Class 1; Milk, Cow's Class 0/1; Milk, Cow's IgE 0.32 kU/L; Mouse Urine Protein Class 0; Mouse Urine Protein IgE <0.10 kU/L; Mugwort (W6) IgE 0.11 kU/L; Oak-White Class 1; Oak-White IgE 0.68 kU/L; Rye (Food Allergen) IgE 0.90 kU/L; Rye Class 2; Sycamore Class 0/1; Sycamore IgE 0.24 kU/L
[2025-01-05 14:55] LABS: Alpha-Lactalbumin Class 0; Alpha-Lactalbumin IgE (f76) <0.10 kU/L; Beta-Lactoglobulin Class 0; Beta-Lactoglobulin IgE (f77) <0.10 kU/L; Casein IgE (f78) 0.14 kU/L; Cat rFel d 1 (e94) Ab IgE <0.10 kU/L (<0.10); Cat rFel d 4 (e228) Ab IgE <0.10 kU/L (<0.10); Cat rFel d 7 (e231) Ab IgE <0.10 kU/L (<0.10); Dog rCan f 1 Ab IgE <0.10 kU/L (<0.10); Dog rCan f 2 Ab IgE <0.10 kU/L (<0.10); Dog rCan f 4 Ab IgE <0.10 kU/L (<0.10); Dog rCan f 5 Ab IgE <0.10 kU/L (<0.10); Dog rCan f 6 Ab IgE <0.10 kU/L (<0.10); Ovalbumin Class 0; Ovalbumin IgE Antibody <0.10 kU/L; Ovomucoid Class 0/1; Ovomucoid IgE Antibody 0.14 kU/L
== END 2025-01-03 10:58 | disposition home or self-care (01) ==
LOC: SUATTDRO → ED 20:30 → 2N 20:30 → SUATTDRO 01-02 01:18 → 2N 01-02 02:16